=== PATIENT | female | born 1980 | race Caucasian/White ===

== ENCOUNTER 2021-06-08 11:59 | Emergency (ER) | payer OTHER ==
--- OUTSIDE RECORDS SUMMARY | 2021-06-08 12:01 | XMS REPORT | Continuity of Care Document ---
:1980 Author Organization [facility] t Address [address] [place] [address] Care Team Providers Name Role Phone PCP, DOES NOT HAVE A Primary Care Physician Unavailable Mika ALARCON Attending Clinician Unavailable Problems This patient has no known problems. Allergies, Adverse Reactions, Alerts Allergy Allergy Status Severity Reaction(s) Onset Inactive Treating Comm ents Source Name Type Date Date Clinician NO KNOWN Drug Active [facility]ERG[facility] Class y of [facility] Medications This patient has no known medications. Procedures This patient has no known procedures. Encounters Start End Encounter Admission Attending Care Care Encounter Source Date/Time Date/Time Type Type Clinicians Facility Department ID 2020-08-27 2020-08-27 Outpatient R [facility] [id number] [facility] 12:50:00 10:57:02 [facility] Results This patient has no known results.
[2021-06-08 12:57] LABS: Absolute Lymphocytes (CBC) 1.5 K/uL (0.7-4.9); Hematocrit 41.7 % (36.0-45.0); Lymphocytes % 20.1 % (15.3-44.8); MPV 8.9 fL (7.6-11.3)
[2021-06-08 13:00] LABS: Protime INR 1.04
[2021-06-08 13:09] LABS: Urine Blood Negative (Negative); Urine Glucose Negative (Negative); Urine Protein Negative (Negative); Urine Specific Gravity 1.025 (1.005-1.030); Urine pH 6.5 (5.0-7.0)
[2021-06-08 13:23] LABS: ALT/SGPT 19 U/L (12-78); AST/SGOT 9 U/L (15-37); Albumin 3.3 g/dL (3.4-5.0); Alkaline Phosphatase 61 U/L (45-117); BUN Blood Urea Nitrogen 8 mg/dL (7-18); Bicarbonate 26 mmol/L (21-32); Bilirubin Direct < 0.1 mg/dL (0-0.2); Bilirubin Total 0.4 mg/dL (0.2-1.0); Glucose Level 93 mg/dL (74-106); Magnesium 2.5 mg/dL (1.8-2.4); NT PRO-BNP 74 pg/mL (<125); Potassium 4.5 mmol/L (3.5-5.1); Protein, Total 7.4 g/dL (6.4-8.2); Sodium Level 137 mmol/L (136-145)
[2021-06-08 13:23] LABS: Urine Specific Gravity/Preg 1.025 (1.005-1.030)
--- NOTE | 2021-06-08 13:41 | RAD REPORT ---
EXAM DESCRIPTION: RAD - Chest Single View - 06/08/2021 12:59 pm CLINICAL HISTORY: Chest pain;Dyspnea COMPARISON: None TECHNIQUE: AP portable chest image was obtained 06/08/2021 12:59 pm . FINDINGS: Lungs are clear. Heart and vasculature are normal. No measurable pleural effusion and no p neumothorax. No acute bony abnormality seen. No acute aortic findings suspected. IMPRESSION: No acute cardiopulmonary process.
--- NOTE | 2021-06-08 14:20 | RAD REPORT ---
EXAM DESCRIPTION: CT - Chest For Pe Angio - 06/08/2021 1:59 pm CLINICAL HISTORY: Chest pain;Dyspnea COMPARISON: No comparisons TECHNIQUE: Dynamically enhanced 3 mm thick images of the chest were obtained during administration o f approximately 150mL Isovue 370 IV contrast. Coronal and oblique MIP reconstruction images were gene rated and reviewed. Exam utilizes a protocol to evaluate the pulmonary arterial tree. All CT scans are performed using dose optimization technique as appropriate and may include automated exposure control or mA/KV adjustment according to patient size. FINDINGS: No pulmonary emboli are identified. The aorta as imaged shows no acute or suspicious finding. No pericardial thickening or effusion. No infiltrate or mass in the lung parenchyma. No scarring or focal remnant from the recent COVID-19 i nfection. No pleural effusion or pleural thickening. No mediastinal or hilar suspicious masses. No chest wall masses or abnormal axillary lymphadenopathy. IMPRESSION: No pulmonary emboli identified. No other significant or suspicious findings.
--- NOTE | 2021-06-08 14:46 | EDPHYS ---
Physician Documentation [facility] Name: Martha Elam Age: 41 yrs Sex: Female : 1980 Arrival Date: 06/08/2021 Time: 12:03 Bed 9 Private MD: ED Physician Corky Zimmer HPI: 06/08 19:12 This 41 yrs old Female presents to ER via Ambulatory with complaints of Cough, jr8 Shortness Of Breath. 19:12 Modifying factors: The symptoms are alleviated by nothing, the symptoms are aggravated jr8 by nothing. Associated signs and symptoms: The patient has no apparent associated signs or symptoms. The patient has experienced a previous episode. The patient has been recently seen at an urgent care. This is a 41-year-old female who presented to the emergency room with complaints of persisting cough since she had Covid couple months ago. On the 11th of this month was put on steroids and Zithromax to see if it would help which she said had but now continues to cough. Saw urgent care today and they referred her to ER for further evaluation to rule out pulmonary embolism as patient was mildly tachycardic. Patient stated that she is also having pain with cough and deep breath. 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 - Social history:: Smoking status: Patient denies any tobacco usage or history of. ROS: 19:12 Eyes: Negative for injury, pain, redness, and discharge, ENT: Negative for injury, jr8 pain, and discharge, Neck: Negative for injury, pain, and swelling, Abdomen/GI: Negative for abdominal pain, nausea, vomiting, diarrhea, and constipation, Back: Negative for injury and pain, MS/Extremity: Negative for injury and deformity, Skin: Negative for injury, rash, and discoloration, Neuro: Negative for headache, weakness, numbness, tingling, and seizure. 19:12 Cardiovascular: Positive for chest pain, Negative for edema, orthopnea, palpitations, paroxysmal nocturnal dyspnea. 19:12 Respiratory: Positive for cough, pleurisy, shortness of breath. Exam: 19:12 Constitutional: This is a well developed, well nourished patient who is awake, alert, jr8 and in no acute distress. Neck: Trachea midline, no thyromegaly or masses palpated, and no cervical lymphadenopathy. Supple, full range of motion without nuchal rigidity, or vertebral point tenderness. No Meningismus. Chest/axilla: Normal chest wall appearance and motion. Nontender with no deformity. No lesions are appreciated. Cardiovascular: Regular rate and rhythm with a normal S1 and S2. No gallops, murmurs, or rubs. Normal PMI, no JVD. No pulse deficits. Respiratory: Lungs have equal breath sounds bilaterally, clear to auscultation and percussion. No rales, rhonchi or wheezes noted. No increased work of breathing, no retractions or nasal flaring. Abdomen/GI: Soft, non-tender, with normal bowel sounds. No distension or tympany. No guarding or rebound. No evidence of tenderness throughout. Back: No spinal tenderness. No costovertebral tenderness. Full range of motion. Skin: Warm, dry with normal turgor. Normal color with no rashes, no lesions, and no evidence of cellulitis. MS/ Extremity: Pulses equal, no cyanosis. Neurovascular intact. Full, normal range of motion. Neuro: Awake and alert, GCS 15, oriented to person, place, time, and situation. Cranial nerves II-XII grossly intact. Motor strength 5/5 in all extremities. Sensory grossly intact. Cerebellar exam normal. Normal gait. Vital Signs: 12:13 BP 124 / 94; Pulse 115; Resp 20 S; Temp 97.8(TE); Pulse Ox 97% on R/A; Weight 51.71 kg jd3 (R); Height 5 ft. 2 in. (157.48 cm) (R); Pain 8/10; 12:13 Body Mass Index 20.85 (51.71 kg, 157.48 cm) jd3 MDM: 12:30 Patient medically screened. [facility] 14:37 Data reviewed: vital signs, nurses notes, lab test result(s), EKG, radiologic studies, jr8 CT scan, plain films. Data interpreted: Pulse oximetry: on room air is 97 %. Interpretation: normal. Counseling: I had a detailed discussion with the patient and/or guardian regarding: the historical points, exam findings, and any diagnostic results supporting the discharge/admit diagnosis, lab results, radiology results, the need for outpatient follow up, a fifth hand, to return to the emergency department if symptoms worsen or persist or if there are any questions or concerns that arise at home. 06/08 12:29 Order name: Basic Metabolic Panel; Complete Time: 13:06/08 12:29 Order name: CBC with Diff; Complete Time: 13:06/08 12:29 Order name: LFT's; Complete Time: :06/08 12:29 Order name: Magnesium; Complete Time: 13:06/08 12:29 Order name: NT PRO-BNP; Complete Time: 13:06/08 12:29 Order name: PT-INR; Complete Time: 13:06/08 12:29 Order name: Troponin HS; Complete Time: 13:06/08 12:29 Order name: XRAY Chest (1 view); Complete Time: 14:06/08 12:29 Order name: EKG; Complete Time: 12:06/08 12:29 Order name: Cardiac monitoring; Complete Time: 12:06/08 12:29 Order name: CT Chest For PE Angio; Complete Time: 14:06/08 13:10 Order name: Urine Dipstick-Ancillary; Complete Time: 13:15 EDMS 06/08 13:13 Order name: Urine --Ancillary (enter results); Complete Time: 13:28 bd 06/08 12:29 Order name: EKG - Nurse/Tech; Complete Time: 12:53 06/08 12:29 Order name: IV Saline Lock; Complete Time: 12:06/08 12:29 Order name: Labs collected and sent; Complete Time: 12:51 06/08 12:29 Order name: O2 Per Protocol; Complete Time: 12:37 06/08 12:29 Order name: O2 Sat Monitoring; Complete Time: 12:06/08 12:29 Order name: Urine Dipstick-Ancillary (obtain specimen); Complete Time: 13:10 jr8 06/08 12:29 Order name: Urine Test (obtain specimen); Complete Time: 13:10 jr8 Administered Medications: No medications were administered Disposition: 15:12 Co-signature as Attending Physician, Corky Zimmer MD I agree with the assessment and kdr plan of care. Disposition Summary: 06/08/21 14:45 Discharge Ordered Location: Home jr Problem: new jr8 Symptoms: have improved jr8 Condition: Stable jr8 Diagnosis - Cough jr8 - Pleurisy jr8 Followup: jr8 - With: Jimmy Wilkinson MD - When: 10 - 14 days - Reason: Recheck today's complaints, Continuance of care, Re-evaluation by your physician Discharge Instructions: - Discharge Summary Sheet jr8 - Pleurisy jr8 - Cough, Adult jr8 Forms: - Medication Reconciliation Form jr8 - Thank You Letter jr8 - Antibiotic Education jr8 - Prescription Opioid Use jr8 Prescriptions: - promethazine-DM 6.25-15 mg/5 mL Oral syrup - take 5 milliliter by ORAL route every 4-6 hours As needed as needed, not to jr8 exceed 30 mL in 24 hours; 120 milliliter; Refills: 0, Product Selection Permitted - Ibuprofen 800 mg Oral Tablet - take 1 tablet by ORAL route every 8 hours for 1 week take with food; 21 tablet; jr8 Refills: 0, Product Selection Permitted Signatures: Dispatcher [employer] Corky Scott MD MD kdr Roszak, Josh, PA PA jr8 Jose Alfredo Song RN RN jd3
--- NOTE | 2021-06-08 14:46 | ER ---
Nurse's Notes [facility] Name: Martha Elam Age: 41 yrs Sex: Female : 1980 Arrival Date: 06/08/2021 Time: 12:03 Bed 9 Private MD: Diagnosis: Cough;Pleurisy Presentation: 06/08 12:08 Chief complaint: Patient states: "My family members got tested positive. I have a cough jd3 and the cough just got worse and I called my doctor and her prescribed me a z-pack, cough syrup, and steroid. I have finished the med last weekend and I thought i was getting better, but then the middle of last week it hurt to get a full breath i causing me to be feeling short of breath and having pain in the middle of my chest.". Coronavirus screen: difficulty breathing, fatigue, Client presents with at least one sign or symptom that may indicate coronavirus-19. Standard/surgical mask placed on the client. Provider contacted for isolation considerations. Ebola Screen: No symptoms or risks identified at this time. Initial Sepsis Screen: Does the patient meet any 2 criteria? No. Patient's initial sepsis screen is negative. Does the patient have a suspected source of infection? No. Patient's initial sepsis screen is negative. Risk Assessment: Do you want to hurt yourself or someone else? Patient reports no desire to harm self or others. Onset of symptoms was June 08, 2021. 12:08 Method Of Arrival: Ambulatory jd3 12:08 Acuity: XI 3 jd3 Triage Assessment: 12:36 General: Appears in no apparent distress. comfortable, slender, well groomed, well jh5 developed, well nourished, Behavior is calm, cooperative, appropriate for age. 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 - Social history:: Smoking status: Patient denies any tobacco usage or history of. Screenin:30 Abuse screen: Denies threats or abuse. Denies injuries from another. Nutritional [facility] screening: No deficits noted. Tuberculosis screening: No symptoms or risk factors identified. Fall Risk None identified. Assessment: 12:35 Pain: Denies pain. Cardiovascular: Rhythm is regular. Respiratory: Airway. Respiratory: [facility] Respiratory effort is even, unlabored, Vital Signs: 12:13 BP 124 / 94; Pulse 115; Resp 20 S; Temp 97.8(TE); Pulse Ox 97% on R/A; Weight 51.71 kg jd3 (R); Height 5 ft. 2 in. (157.48 cm) (R); Pain 8/10; 12:13 Body Mass Index 20.85 (51.71 kg, 157.48 cm) d3 ED Course: 12:03 Patient arrived in ED. ds1 12:11 Triage completed. jd3 12:14 Arm band placed on. jd3 12:22 Mahnaz Epps, RN is Primary Nurse. jh5 12:28 Goldy Aviles PA is PHCP. jr8 12:28 Corky Zimmer MD is Attending Physician. jr8 12:30 Patient has correct armband on for positive identification. Bed in low position. Call [facility] light in reach. 12:30 No provider procedures requiring assistance completed. 5 12:51 Basic Metabolic Panel Sent. jh5 12:51 CBC with Diff Sent. jh5 12:51 LFT's Sent. 5 12:51 Magnesium Sent. jh5 12:51 NT PRO-BNP Sent. jh5 12:51 PT-INR Sent. jh5 12:52 Troponin HS Sent. jh5 12:53 Initial lab(s) drawn, by ED staff, sent to lab. EKG done, by ED staff, reviewed by [facility] Corky Zimmer MD. 12:54 Pillow given. campus monitor on. Pulse ox on. NIBP on. 5 12:55 Basic Metabolic Panel Sent. 5 12:55 CBC with Diff Sent. 5 12:55 LFT's Sent. 5 12:55 Magnesium Sent. 5 12:55 NT PRO-BNP Sent. 5 12:55 PT-INR Sent. jh5 12:55 Troponin HS Sent. jh5 12:59 XRAY Chest (1 view) In Process Unspecified. EDMS 13:59 CT Chest For PE Angio In Process Unspecified. EDMS 14:45 Jimmy Wilkinson MD is Referral Physician. jr8 Administered Medications: No medications were administered Outcome: 14:45 Discharge ordered by . jr8 14:53 Patient left the ED. [facility] Signatures: Dispatcher [employer] EDWA Charo Cuevas ds1 Goldy Aviles PA PA jr8 Lisa Kelley Jose Alfredo Avalos RN RN jd3 Mahnaz Epps RN RN jh5
[2021-06-08 22:29] VITALS: BP 124/94; TEMP 97.8; O2SAT 97
--- NOTE | 2021-06-09 08:25 | EKG ---
Test Date: 2021-06-08 Test Time: 12:53:27 Dining Room Hostess: MARILYN MEASUREMENT RESULTS: Intervals: Rate: 104 RI: 126 QRSD: 66 QT: 316 QTc: [address]: P: 86 RI: 126 QRS: 96 T: 65 INTERPRETIVE STATEMENTS: Sinus tachycardia Rightward axis Borderline ECG No previous ECG available for comparison Electronically Signed On 06-09-21 08:22:31 GENERAL SALES MANAGER by Shawn Kraft
== END 2021-06-08 14:53 | disposition home or self-care (01) ==
LOC: ER 11:59
DX: R09.1 Pleurisy (principal)
CPT/HCPCS: 93005; 85025; 80048; 36415; 83735; 81025; 85610; 80076; 81003; 84484; 83880; 71275; 71045; 99284; Q9967